=== PATIENT | female | born 1940 | race Caucasian/White ===

== ENCOUNTER 2018-08-12 13:40 | Emergency (ER) | payer OTHER ==
[~2018-08-12] VITALS: Ht 160 cm; Wt 58.1 kg
[2018-08-12] MEDS ORDERED: cloNIDine HCL 0.1 MG TAB ONE (14:11)
[2018-08-12] MEDS ORDERED: cloNIDine HCL 0.1 MG TAB PO ONE (14:15)
[2018-08-12] MEDS ORDERED: HYDROcodone-ACET 10/325MG TAB PO ONE (15:00)
[2018-08-12 15:11] VITALS: BP 111/67
[2018-08-12 15:35] LABS: Albumin 3.6 g/dL (3.4-5.0); Anion Gap 7 (5-15); BUN/Creatinine Ratio 23.5; Blood Urea Nitrogen 16 mg/dL (7-18); Calcium 8.2 mg/dL (8.5-10.1); Carbon Dioxide 26 mmol/L (21-32); Chloride 109 mmol/L (98-107); GFR African American 108 mL/min; GFR Non-African American 90 mL/min; Glucose 95 mg/dL (74-106); Magnesium 2.5 mg/dL (1.6-2.6); Potassium 3.9 mmol/L (3.5-5.1); Sodium 142 mmol/L (136-145)
[2018-08-12 15:41] LABS: Alanine Aminotransferase 17 U/L (13-56); Alkaline Phosphatase 66 U/L (45-117); Aspartate Aminotransferase 15 U/L (15-37); Bilirubin, Total 0.3 mg/dL (0.2-1.0); Total Protein 7.2 g/dL (6.4-8.2)
[2018-08-12 16:14] LABS: Basophils # (auto) 0.1 uL; Basophils % (auto) 1.3 % (0.0-2.0); Eosinophils # (auto) 0.2 uL; Eosinophils % (auto) 2.5 % (0.0-7.0); Lymphocytes # (auto) 2.6 uL; Lymphocytes % (auto) 32.9 % (10.0-50.0); Mean Corpuscular Hemoglobin 29.8 pg (28.0-32.0); Mean Corpuscular Hgb Conc. 33.3 g/dL (32.0-36.0); Mean Corpuscular Volume 89.5 fL (80.0-100.0); Monocytes # (auto) 0.4 uL; Monocytes % (auto) 5.2 % (0.0-12.0); Neutrophils # (auto) 4.5 uL; Neutrophils % (auto) 58.1 % (37.0-80.0); Platelet Count (auto) 250 10^3/uL (140-450); Red Blood Cells 5.03 10^6/uL (4.0-5.20); White Blood Cell 7.8 10^3/uL (4.4-10.8)
== END 2018-08-12 16:09 | disposition home or self-care (01) ==
LOC: EDUNIT# 13:40 → EDBD 13:40 → ER 13:51
DX: I16.0 Hypertensive urgency (principal); E78.5 Hyperlipidemia, unspecified; F17.290 Nicotine dependence, other tobacco product, uncomplicated; Z86.73 Personal history of transient ischemic attack (TIA), and cerebral infarction without residual deficits; Z90.49 Acquired absence of other specified parts of digestive tract; Z98.51 Tubal ligation status
CPT/HCPCS: 36415; 70450; 80053; 83735; 84484; 85025; 93005; 94761

== ENCOUNTER 2020-05-20 21:27 | Emergency (ER) | payer OTHER ==
[~2020-05-20] VITALS: Ht 160 cm; Wt 58.1 kg
[2020-05-20 23:01] LABS: Basophils # (auto) 0.1 10 ^3/uL (0-0.2); Basophils % (auto) 0.6 % (0.0-2.0); Eosinophils # (auto) 0.1 10 ^3/uL (0-0.8); Eosinophils % (auto) 0.9 % (0.0-7.0); Hematocrit 44.4 % (36.0-46.0); Hemoglobin 14.9 g/dL (12.2-16.2); Lymphocytes # (auto) 2.4 10 ^3/uL (0.4-5.4); Lymphocytes % (auto) 25.3 % (10.0-50.0); Mean Corpuscular Hgb Conc. 33.5 g/dL (32.0-36.0); Mean Corpuscular Volume 89.5 fL (80.0-100.0); Monocytes # (auto) 0.6 10 ^3/uL (0-1.3); Monocytes % (auto) 5.8 % (0.0-12.0); Neutrophils # (auto) 6.5 10 ^3/uL (1.6-8.6); Neutrophils % (auto) 67.4 % (37.0-80.0); Platelet Count (auto) 232 10^3/uL (140-450); Red Blood Cells 4.96 10^6/uL (4.0-5.20); Red Cell Distribution Width 13.9 % (11.8-14.3); White Blood Cell 9.7 10^3/uL (4.4-10.8)
[2020-05-20 23:13] LABS: INR 0.96 (0.9-1.15); Partial Thromboplastin Time 23.4 sec (23.0-31.2)
[2020-05-20 23:22] LABS: Chloride 109 mmol/L (98-107); Potassium 3.8 mmol/L (3.5-5.1); Sodium 140 mmol/L (136-145)
[2020-05-20 23:32] LABS: Albumin 3.8 g/dL (3.4-5.0); Anion Gap 8 (5-15); BUN/Creatinine Ratio 19.5; Blood Urea Nitrogen 16 mg/dL (7-18); Calcium 8.8 mg/dL (8.5-10.1); Carbon Dioxide 23 mmol/L (21-32); GFR African American 87 mL/min; GFR Non-African American 72 mL/min; Glucose 110 mg/dL (74-106); Magnesium 2.1 mg/dL (1.6-2.6)
[2020-05-20 23:38] LABS: Alanine Aminotransferase 18 U/L (13-56); Alkaline Phosphatase 63 U/L (45-117); Aspartate Aminotransferase 19 U/L (15-37); Bilirubin, Total 0.5 mg/dL (0.2-1.0); Total Protein 7.5 g/dL (6.4-8.2)
[2020-05-21 02:45] VITALS: BP 142/89
== END 2020-05-21 02:57 | disposition home or self-care (01) ==
LOC: ER 21:29
DX: M47.812 Spondylosis without myelopathy or radiculopathy, cervical region (principal); R07.9 Chest pain, unspecified; R51.9 Headache, unspecified; E78.5 Hyperlipidemia, unspecified; I10 Essential (primary) hypertension; F17.200 Nicotine dependence, unspecified, uncomplicated; Z98.51 Tubal ligation status; Z86.73 Personal history of transient ischemic attack (TIA), and cerebral infarction without residual deficits
CPT/HCPCS: 36415; 70450; 71045; 72125; 80053; 82962; 83735; 83880; 84443; 84484; 85025; 85379; 85610; 85730; 93005